=== PATIENT | male | born 1995 | race Caucasian/White ===

== ENCOUNTER 2017-10-27 12:32 | Emergency (ER) | payer SELFPAY ==
[~2017-10-27] VITALS: Ht 167.6 cm; Wt 86.8 kg
[2017-10-27 12:38] VITALS: BP 116/70
--- NOTE | 2017-10-27 12:41 | NUR ---
PATIENT AMBULATED TO CHAIR B
--- NOTE | 2017-10-27 12:41 | NUR ---
DR. ABRAHAM EVALUATING PATIENT
--- NOTE | 2017-10-27 12:43 | NUR ---
FELT DIZZY AFTER USING THE RESTROOM, DENIES SYNCOPAL EPISODE; VOMITING X1 . DENIES N/D; SKIN IS PINK/WARM/DRY; AAOX4 WITH EVEN AND STEADY GAIT; LUNGS CLEAR BL; HR EVEN AND REGULAR; PT DENIES ANY FEVER, CP, SOB, OR COUGH AT THIS TIME; PATIENT STATES PAIN OF 0/10 AT THIS TIME; VSS; ER MD MADE AWARE OF PT STATUS.
[2017-10-27] MEDS ORDERED: IBUPROFEN 600 MG TAB PO ONE (12:45)
[2017-10-27] MEDS ORDERED: ONDANSETRON 4 MG ODT PO ONE (12:45)
[2017-10-27 13:04] LABS: BASOPHILS # (AUTO) 0.1 K/uL (0.00-0.22); BASOPHILS % (AUTO) 0.5 % (0.0-2.0); EOSINOPHILS # (AUTO) 0.2 K/uL (0-0.4); EOSINOPHILS % (AUTO) 1.4 % (0.0-4.0); HEMATOCRIT 47.4 % (36-52); HEMOGLOBIN 15.8 g/dL (12.0-18.0); LYMPHOCYTES # (AUTO) 2.2 K/uL (2.0-11.5); LYMPHOCYTES % (AUTO) 19.6 % (20.5-51.1); MEAN CORPUSCULAR HEMOGLOBIN 28 pg (27-31); MEAN CORPUSCULAR HGB CONC 33 g/dL (33-37); MONOCYTES # (AUTO) 0.8 K/uL (0.8-1.0); MONOCYTES % (AUTO) 7.4 % (1.7-9.3); NEUTROPHILS # (AUTO) 7.9 K/uL (1.8-7.7); NEUTROPHILS % (AUTO) 71.1 % (42.2-75.2); PLATELET COUNT (AUTO) 244 K/uL (140-450); RED BLOOD CELL COUNT(AUTO) 5.72 MIL/uL (4.20-6.10); RED CELL DISTRIBUTION WIDTH 13.3 % (11.6-13.7); WHITE BLOOD COUNT (AUTO) 11.1 K/uL (4.8-10.8)
[2017-10-27 13:07] LABS: APPEARANCE,URINE CLEAR (CLEAR); BLOOD, URINE NEGATIVE (NEGATIVE); COLOR,URINE YELLOW (YELLOW); LEUKOCYTE ESTERASE ,URINE NEGATIVE (NEGATIVE); NITRITE, URINE NEGATIVE (NEGATIVE); PH,URINE 5.5 (5.0-9.0); UGLUCOSE NEGATIVE (NEGATIVE)
[2017-10-27 13:26] LABS: BILIRUBIN,URINE NEGATIVE (NEGATIVE)
[2017-10-27] MEDS ORDERED: NACL 0.9% 1,000 ML IV ONE (13:50)
[2017-10-27 13:59] LABS: ALBUMIN 4.2 g/dL (3.4-5.0); ANION GAP 14.6 (8-16); CARBON DIOXIDE 27.1 mmol/L (21-32); FREE T4 (FREE THYROXINE) 1.01 ng/dL (0.76-1.46); POTASSIUM 3.7 mmol/L (3.5-5.1); THYROID STIMULATING HORMONE 1.96 uIU/mL (0.34-3.74); TOTAL BILIRUBIN 0.9 mg/dL (0.0-1.0)
[2017-10-27 14:35] LABS: RBC,URINE NONE SEEN /HPF (0-5); WBC,URINE NONE SEEN /HPF (0-5)
[2017-10-27 14:58] VITALS: BP 116/70
--- NOTE | 2017-10-27 14:58 | NUR ---
Patient discharged with v/s stable. Written and verbal after care instructions given and explained. Patient verbalized understanding. Ambulatory with steady gait. All questions addressed prior to discharge. Advised to follow up with PMD.
[2017-10-27 15:35] LABS: BARBITURATE, URINE NEG. ng/ml (NEG <=200); BENZODIAZEPINE, URINE NEG. ng/mL (NEG <=200); CANNABINOID, URINE NEG. ng/mL (NEG <=50); COCAINE, URINE NEG. ng/mL (NEG <=300); OPIATE, URINE NEG. ng/mL (NEG <=2000); PHENCYCLIDINE SCREEN,URINE NEG. ng/mL (NEG <=25)
== END 2017-10-27 14:58 | disposition home or self-care (01) ==
LOC: MED 12:32
DX: R55 Syncope and collapse (principal); R42 Dizziness and giddiness
CPT/HCPCS: 36415; 80053; 80305; 81001; 84439; 84443; 85025; 93005; 99285; J7030; S0119